=== PATIENT | male | born 1950 | race Caucasian/White ===

== ENCOUNTER 2017-06-28 11:47 | Inpatient (IN) ==
[2017-06-28 12:04] LABS: Basophils % 0.3 %; Eosinophils # 0.5 K/mcL (0.0-0.6); Eosinophils % 7.1 %; Hematocrit 39.2 % (37.5-50.1); Hemoglobin 13.3 g/dL (12.9-16.9); Immature Granulocytes % 0.3 % (0-4); Lymphocytes # 1.3 K/mcL (0.6-4.6); Lymphocytes % 20.2 %; Mean Corpuscular HGB Conc 33.9 g/dL (31.6-35.5); Mean Corpuscular Hemoglobin 29.8 pg (28.0-33.3); Mean Corpuscular Volume 87.9 fL (83.0-100.0); Monocytes # 0.8 K/mcL (0.0-1.3); Monocytes % 12.4 %; Neutrophils # 3.9 K/mcL (1.6-8.9); Platelet Count 174 K/mcL (140-400); Red Blood Count 4.46 M/mcL (4.19-5.50); Red Cell Distribution Width 13.2 % (11.5-14.5); Segmented Neutrophils % 59.7 %
[2017-06-28 12:09] LABS: Prothrombin Time 10.7 Seconds (9.4-12.1)
[2017-06-28 12:12] LABS: Activated Partial Thrombo Time 31.2 Seconds (26.0-36.0)
--- NOTE | 2017-06-28 12:16 | Emergency Department Note ---
Disposition Clinical Impression: Dysarthria Cerebrovascular accident Qualifiers: CVA mechanism: unspecified Qualified Code(s): I63.9 - Cerebral infarction, unspecified Disposition: Admitted As Inpatient Condition: Good Neuro HPI - General Chief Complaint: ED Neuro Symptoms/Deficit Stated Complaint: neuro sx 0800 LKW Time Seen by Provider: 06/28/17 11:55 Source: patient Mode of arrival: private vehicle Limitations: no limitations - History of Present Illness HPI Narrative: 67-year-old male history of hypertension, diabetes, hyperlipidemia who presents to the ER with a chief complaint of difficulty speaking and slurring words. Patient reports symptom onset at 8 AM this morning. Denies any injury or trauma. States he was trying to get dressed and noticed it took longer than usual and he was having trouble speaking. Significant other at bedside reports that he is slurring his words. No prior history of TIA or CVA in the past. He is not on any anticoagulation medications. He does take an aspirin daily. Upon arrival the patient is noted to have a right facial droop with dysarthria. Patient taken to CT for emergent imaging. Onset of Symptoms Date: 06/28/17 Onset of Symptoms Time: 08:00 Symptom Onset Unknown: No Location: speech, right face History of same: No Severity: mild Symptoms Improving: No Improves with: none Worsens with: none Context: sudden onset On Anticoagulants: No Associated symptoms: Reports: denies other symptoms Treatments Prior to Arrival: none - Related Data Home Medications: Home Medications Medication Instructions Recorded Confirmed Ascorbic Acid [Vitamin C] 1,000 mg PO DAILY 06/28/17 06/28/17 Aspirin 81 mg PO DAILY 06/28/17 06/28/17 Atorvastatin [Lipitor] 10 mg PO HS 06/28/17 06/28/17 Citalopram [CeleXA] 20 mg PO DAILY 06/28/17 06/28/17 Ferrous Sulfate [Iron] 325 mg PO BID 06/28/17 06/28/17 Folic Acid 1 mg PO DAILY 06/28/17 06/28/17 Glimepiride [Amaryl] 1 mg PO DAILY 06/28/17 06/28/17 Metoprolol [Lopressor] 25 mg PO BID 06/28/17 06/28/17 [place]-3 Fatty Acids [Fish Oil] 300 mg PO DAILY 06/28/17 06/28/17 metFORMIN [Glucophage] 1,000 mg PO BIDWM 06/28/17 06/28/17 Allergies/Adverse Reactions: Allergies Allergy/AdvReac Type Severity Reaction Status Date / Time No Known Allergies Allergy Verified 06/28/17 11:55 All systems ED: reviewed and negative except as stated. Constitutional: Denies: fever Cardiovascular: Denies: chest pain Respiratory: Denies: dyspnea Gastrointestinal: Denies: abdominal pain Neurological: Denies: headache, numbness, paresthesias Past Medical History - Past Medical History Attestation: Yes The following information was validated with the patient. Source: patient Medical history: Reports: CVA, diabetes, hypertension Psychiatric history: Reports: no psych history - Social History Smoking Status: Former smoker Smokeless Tobacco Status: No Alcohol use: Reports: none Drug use: Reports: none Physical Exam - General Limitations: no limitations General appearance: alert, in no apparent distress - Head Head exam: atraumatic, normocephalic - Eye Eye exam: Present: normal appearance - ENT ENT exam: normal exam - Neck Neck exam: Present: normal inspection, full ROM - Chest Chest inspection: Present: normal inspection, symmetric chest wall rise - Respiratory Respiratory exam: Present: normal lung sounds bilaterally - Cardiovascular Cardiovascular exam: Present: regular rate, normal rhythm, normal heart sounds - Abdominal Exam Abdominal exam: Present: soft, Non-Tender. Absent: tenderness - Extremities Exam Extremities exam: Present: normal inspection, full ROM - Expanded Upper Extremity Exam Shoulder exam: Present: normal inspection, full ROM Arm exam: Present: normal inspection, full ROM Elbow exam: Present: normal inspection, full ROM Forearm/Wrist exam: Present: normal inspection, full ROM Hand exam: Present: normal inspection, full ROM - Expanded Lower Extremity Exam Hip/Pelvis exam: Present: normal inspection, full ROM Upper leg exam: Present: normal inspection, full ROM Knee exam: Present: normal inspection, full ROM Lower leg exam: Present: normal inspection, full ROM Ankle exam: Present: normal inspection, full ROM Foot/toe exam: Present: normal inspection, full ROM Neurovascular/Tendon exam: Absent: motor deficit, sensory deficit - Neurological Exam Neurological exam: Present: alert - Expanded Neurological Exam Speech: Present: expressive aphasia Cranial nerves: EOM function (II, III, IV, ): Normal, facial palsy (VII): Abnormal Right, spinal accessory function (XI): Normal, tongue deviation (XII): Normal Cerebellar function: finger to nose: Normal, heel to collins: Normal Motor strength - LUE: 5/5 Motor strength - RUE: 5/5 Motor strength - LLE: 5/5 Motor strength - RLE: 5/5 Sensory exam upper extremity: light touch: Normal Sensory exam lower extremity: light touch: Normal Coma Scale Eye Opening: Spontaneous Coma Scale Motor Response: Obeys Commands Coma Scale Verbal Response: Oriented Coma Scale Total: 15 - Skin Skin exam: Present: warm, dry, intact Course Course Narrative: Patient seen and examined. I also spoke with the radiologist who reports they see an infarction in the left cerebral hemisphere that would correlate with the patient's symptoms. We will discussed with [facility] neurology for their recommendations as well as get labs here. - Reevaluation(s) Reevaluation #1: Patient evaluated by [facility] neurology. He did tell them that his symptom onset might of been more around 7:30. He is no longer in the window for TPA. They do agree with continuing workup with a CT of his head and neck and transfer something shown to be reversible. I discussed this with the patient and family. They would rather stay here if they are able to. Patient will go for CT of the head and neck. Reevaluation #2: Discussed results of CTA with the patient. He requests to stay here all possible. We will discuss with the hospitalist. Vital Signs Temperature 0 F L 06/28/17 11:49 Pulse Rate 0 06/28/17 11:49 Respiratory Rate 0 06/28/17 11:49 Blood Pressure 0/0 06/28/17 11:49 O2 Sat by Pulse Oximetry 0 06/28/17 11:49 Temperature 98.9 F 06/28/17 12:02 Pulse Rate 71 06/28/17 15:52 Respiratory Rate 20 06/28/17 15:52 Blood Pressure 187/84 06/28/17 15:52 O2 Sat by Pulse Oximetry 98 06/28/17 15:52 Oxygen Delivery Oxygen Delivery Room Air Neuro Symptoms/Deficit - MDM Narrative Medical decision making narrative: 67-year-old male presents to the ER due to dysarthria and aphasia. No prior history of CVA in the past. He was deemed a stroke alert candidate arrival. He had initial presenting NIH of 4. CT demonstrates an acute infarction of the left cerebral hemisphere. Patient was evaluated independently by [facility] neurology. He was found to be outside the window for TPA administration. He underwent emergent CT of the head and neck for evaluation of acute thrombus. He does have what appear to be stenotic areas of his internal carotid artery with reconstituted flow. He is admitted to the hospitalist service for neurologic evaluation. - Lab Data Lab results reviewed: Yes I reviewed the patient's lab results. Result diagrams: 06/28/17 11:57 06/28/17 11:57 Lab Results 06/28/17 06/28/17 06/28/17 Range/Units 11:52 11:57 11:57 WBC 6.5 (4.3-11.1) K/mcL RBC 4.46 (4.19-5.50) M/mcL Hgb 13.3 (12.9-16.9) g/dL Hct 39.2 (37.5-50.1) % MCV 87.9 (83.0-100.0) fL MCH 29.8 (28.0-33.3) pg MCHC 33.9 (31.6-35.5) g/dL RDW 13.2 (11.5-14.5) % Plt Count 174 (140-400) K/mcL MPV 10.0 (9.4-12.4) fL Immature Gran % 0.3 (0-4) % Seg Neutrophils % 59.7 % Lymphocytes % 20.2 % Monocytes % 12.4 % Eosinophils % 7.1 % Basophils % 0.3 % Neutrophils # 3.9 (1.6-8.9) K/mcL Lymphocytes # 1.3 (0.6-4.6) K/mcL Monocytes # 0.8 (0.0-1.3) K/mcL Eosinophils # 0.5 (0.0-0.6) K/mcL Basophils # 0.0 (0.0-0.2) K/mcL PT 10.7 (9.4-12.1) Seconds INR 1.0 APTT 31.2 (26.0-36.0) Seconds Sodium (136-145) mEq/L Potassium (3.5-5.1) mEq/L Chloride (98-107) mEq/L Carbon Dioxide (23-29) mEq/L BUN (8-23) mg/dL Creatinine (0.70-1.30) mg/dL Est GFR ( Amer) (> 60) Est GFR (Non-Af Amer) (> 60) BUN/Creatinine Ratio (6-26) Glucose (70-105) mg/dL POC Glucose 118 H (58-89) Calculated Osmolality (280-300) Calcium (8.6-10.3) mg/dL Troponin I (< 0.04) ng/mL 06/28/17 06/28/17 Range/Units 11:57 11:57 WBC (4.3-11.1) K/mcL RBC (4.19-5.50) M/mcL Hgb (12.9-16.9) g/dL Hct (37.5-50.1) % MCV (83.0-100.0) fL MCH (28.0-33.3) pg MCHC (31.6-35.5) g/dL RDW (11.5-14.5) % Plt Count (140-400) K/mcL MPV (9.4-12.4) fL Immature Gran % (0-4) % Seg Neutrophils % % Lymphocytes % % Monocytes % % Eosinophils % % Basophils % % Neutrophils # (1.6-8.9) K/mcL Lymphocytes # (0.6-4.6) K/mcL Monocytes # (0.0-1.3) K/mcL Eosinophils # (0.0-0.6) K/mcL Basophils # (0.0-0.2) K/mcL PT (9.4-12.1) Seconds INR APTT (26.0-36.0) Seconds Sodium 136 (136-145) mEq/L Potassium 4.3 (3.5-5.1) mEq/L Chloride 105 (98-107) mEq/L Carbon Dioxide 23 (23-29) mEq/L BUN 19 (8-23) mg/dL Creatinine 0.98 (0.70-1.30) mg/dL Est GFR ( Amer) > 60 (> 60) Est GFR (Non-Af Amer) > 60 (> 60) BUN/Creatinine Ratio 19 (6-26) Glucose 119 H (70-105) mg/dL POC Glucose (58-89) Calculated Osmolality 285 (280-300) Calcium 8.9 (8.6-10.3) mg/dL Troponin I < 0.03 (< 0.04) ng/mL - Radiology Data Radiology results reviewed: Yes I reviewed the patient's radiology results. Head CT 06/28/17 11:56 IMPRESSION: 7 mm acute infarction in the posterior aspect of the left frontal lobe, in the left MCA territory. Sinus mucosal disease. The results were called by Dr. Liban Salinas MD to Dr. Schuler on 06/28/2017 at 12:13. D/ / Liban Salinas MD / Liban Salinas MD Interpreting Provider: Libna Salinas MD Head CTA 06/28/17 12:34 IMPRESSION: 1. 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 There is reconstitution of the left internal carotid artery along the petrous segment. 2. There is a 35% stenosis in the proximal right internal carotid artery. 3. There is a greater than 50% stenosis at the right vertebral artery origin which is nondominant. 4. There are estimated 50% stenoses in the left internal carotid artery along the cavernous and supraclinoid segments. Mild areas of narrowing are noted in the right cavernous and supraclinoid ICA. 5. No evidence of an aneurysm. D/ /28/2017 14:04:30 Aryan Bella MD / ashley Interpreting Provider: Aryan Bella MD Neck CTA 06/28/17 12:34 IMPRESSION: 1. 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 There is reconstitution of the left internal carotid artery along the petrous segment. 2. There is a 35% stenosis in the proximal right internal carotid artery. 3. There is a greater than 50% stenosis at the right vertebral artery origin which is nondominant. 4. There are estimated 50% stenoses in the left internal carotid artery along the cavernous and supraclinoid segments. Mild areas of narrowing are noted in the right cavernous and supraclinoid ICA. 5. No evidence of an aneurysm. D/ 06/28/2017 14:04:30 Aryan Bella MD / ashley Interpreting Provider: Aryan Bella MD - EKG Data EKG attestation: Yes I reviewed and interpreted this EKG. NIH Stroke Scale - Level of Consciousness LOC: Alert - LOC Questions LOC Questions: Answers both correctly - LOC Commands LOC Commands: Performs both correctly - Best Gaze Best Gaze: Normal - Visual Visual: No visual loss - Facial Palsy Facial Palsy: Partial, total, or near-total paralysis of lower face - Motor Arms Motor Arm-Left: No drift for 10 seconds Motor Arm-Right: No drift for 10 seconds - Motor Legs Motor Leg-Left: No drift for 5 seconds Motor Leg-Right: No drift for 5 seconds - Limb Ataxia Limb Ataxia: Absent of affected limb too weak to perform exam - Sensory Sensory: Normal - Best Language Best Language: Mild to moderate aphasia. Examiner can identify picture from response - Dysarthria Dysarthria: Mild, slurs some words - Extinction and Inattention Extinction and Inattention: Normal - NIHSS Total Score NIHSS Total Score: 4 S.B.A.R. - S.B.A.R. Situation: Demographics, MOA Background: Presenting Complaint, Relevant PMH, Meds, & Allergies Assessment: Course and respsone to treatment, Exam Concerns, Patient/Family Expectation, Pertinant Lab Results Recommendation: Barrier(s) to disposition, Recommendation based on pending studies, treatments, or consults S.B.A.RRey Report Given to: Dr. Ying Daigle [facility] Time: 15:21 Attestation Statement - Attestation Attestation: I examined this patient and my medical decision-making was reviewed with the Resident Physician. I agree with the documented findings, disposition and treatment plan as described except to the extent set forth below. 67-year-old male presents to the ED because of right-sided facial weakness. Symptoms began this morning around 8 AM along with brief episode of diaphoresis. He had no weakness of the extremities or any other complaints. No pain. No recent trauma. 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 No other focal complaints. His noticed that his speech was also slurred and he was having trouble producing words. Generally well-appearing male in no apparent physiologic distress. Membranes are moist. Neck is supple trachea midline. Tongue and uvula are midline. Pupils equal reactive light. There is no weakness to the right side of his face. Neck is supple without adenopathy. Cardiac exam is regular without ectopy. Abdomen soft, nondistended and nontender. Lungs clear to auscultation bilaterally. Neurologic exam he has weakness of the right side of his face with mild dysarthria and some mild word searching. Strength is normal in both upper and lower extremities. No sensory deficits are detected. NIH score is 4- 5. CT head was performed immediately upon arrival revealing a small area of infarction on the posterior aspect of the left frontal lobe. He was evaluated emergently by stroke neurologist [facility] via telemetry. At that point because his NIH score was more of a 2 or 3 and he was outside the window of any therapy measures with thrombolytics. He was sent for CTA which revealed a cyst significant stenosis of the proximal left internal carotid artery which was likely contributing to his presentation. He continued with mild dysarthria and was given rectal aspirin and admitted to the hospital for further workup and treatment. The high probability of a clinically significant, sudden or life threatening deterioration of the [cerebrovascular] system(s) required my full and direct attention, intervention and personal management. The aggregate critical care time was [35] minutes. This time is in addition to time spent performing reported procedures but includes the following: [x] Data Review and interpretation [x] Patient assessment and monitoring of vital signs [x] Documentation [x] Medication orders and management
[2017-06-28 12:25] LABS: BUN/Creatinine Ratio 19 (6-26); Blood Urea Nitrogen 19 mg/dL (8-23); Calcium 8.9 mg/dL (8.6-10.3); Carbon Dioxide 23 mEq/L (23-29); Chloride 105 mEq/L (98-107); Glucose 119 mg/dL (70-105); Osmolality,Calculated 285 (280-300); Potassium 4.3 mEq/L (3.5-5.1); Sodium 136 mEq/L (136-145); eGFR For African Americans > 60 (> 60); eGFR For Non-African Americans > 60 (> 60)
[2017-06-28] MEDS ORDERED: Alteplase (Activase) 100 MG in EMPTY BAG 1 EACH IVPB ONE (12:25)
[2017-06-28] MEDS ORDERED: Aspirin 325 MG TABLET PO ONE (14:11)
[2017-06-28] MEDS ORDERED: Acetaminophen 325 MG TABLET PO PRN (17:35)
[2017-06-28] MEDS ORDERED: *HR* HYDROcodone/Acet 5/325 mg TABLET PO PRN (17:35)
[2017-06-28] MEDS ORDERED: Ondansetron 4 MG/2 ML VIAL IVP PRN (17:35)
[2017-06-28] MEDS ORDERED: Naloxone 0.4 MG/ML INJ IVP PRN (17:35)
[2017-06-28] MEDS ORDERED: *HR* Morphine 2 MG/ML SYRINGE IVP PRN (17:35)
[2017-06-28] MEDS ORDERED: D5% in Water 1,000 ML IVC PRN (17:38)
[2017-06-28] MEDS ORDERED: Dextrose Gel 15 GM/37.5 ML TUBE PO PRN ×2 (17:38)
[2017-06-28] MEDS ORDERED: *HR* Dextrose 50 % in Water (Syg) 50 ML SYRINGE IVP PRN (17:38)
--- NOTE | 2017-06-28 18:11 | Internal Med History&Physical ---
Date of Encounter: 06/28/17 Time of Encounter: 18:07 Assessment and Plan (1) Acute CVA (cerebrovascular accident) Current visit: Yes Status: Acute Admit the pt into Tele Reviewed CT of Head, CTA of Head Showed Left frontal lobe acute 7mm infraction He is already on ASA at home.. will add Plavix to ASA for DAP therapy Statin Lipitor 80mg HS FLP in AM Out of the window for tPA Goal for BP 140-160/90 Resumed home PO meds for BP Neuro consulted MRI of Brain in AM 2 D Echo in AM Stat EKG on Tele frequent neurochecks PT / OT eval talked to the pt and family at bed side and explained to them about current care (2) Dysarthria Current visit: Yes Status: Acute (3) HTN (hypertension) Current visit: Yes Status: Acute goal 140-160/90 resumed PO meds Qualifiers: Hypertension type: essential hypertension Qualified Code(s): I10 - Essential (primary) hypertension (4) HLD (hyperlipidemia) Current visit: Yes Status: Acute Lipitor 80mg Qualifiers: Hyperlipidemia type: unspecified Qualified Code(s): E78.5 - Hyperlipidemia , unspecified (5) DM2 (diabetes mellitus, type 2) Current visit: Yes Status: Acute check HbA1C ISS at low Qualifiers: Qualified Code(s): E11.9 - Type 2 diabetes mellitus without complications Internal Medicine - H&P: HPI Chief complaint: Slurred speech and Rt facial numbness Admitted From: Emergency Dept Plans for Post Hospital Care: Home History of present illness: Mr. 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 As per pt his symptoms started this morning around 7 to 8 AM, but he did not come to ER until 11.00 AM. He had further work up done in the ER , CT of Head showed 7mm acute infraction in the posterior aspect of Left frontal lobe in the Lt MCA territory. CTA of Head showed Left internal carotid occluded at its origin. Now pt is alert, awake and O x3, stated he is feeling little better, speech improved little bit. He is able to swallow ok now. He denied any weakness in any of his extremities. Past Med Surg Social Fam HX - Past Medical History Medical history: CVA, diabetes, hypertension Psychiatric history: no psych history - Social History Smoking Status: Former smoker Smokeless Tobacco Status: No Alcohol use: none Drug use: none - Family History Brother Hx Family Cardiac Disorders: Yes Sister Hx Family Cardiac Disorders: Yes Internal Medicine - H&P: Meds Ascorbic Acid [Vitamin C] 1,000 mg PO DAILY 06/28/17 [History] Aspirin 81 mg PO DAILY 06/28/17 [History] Atorvastatin [Lipitor] 10 mg PO HS 06/28/17 [History] Citalopram [CeleXA] 20 mg PO DAILY 06/28/17 [History] Ferrous Sulfate [Iron] 325 mg PO BID 06/28/17 [History] Folic Acid 1 mg PO DAILY 06/28/17 [History] Glimepiride [Amaryl] 1 mg PO DAILY 06/28/17 [History] Metoprolol [Lopressor] 25 mg PO BID 06/28/17 [History] [place]-3 Fatty Acids [Fish Oil] 300 mg PO DAILY 06/28/17 [History] metFORMIN [Glucophage] 1,000 mg PO BIDWM 06/28/17 [History] 3 Allergy/AdvReac Type Severity Reaction Status Date / Time No Known Allergies Allergy Verified 06/28/17 11:55 All Systems PM: A 10-system review of systems was performed and is negative for pertinent findings except as documented above in the HPI. Review of systems: Reviewed all the systems, everything is benign except the systems and symptoms I mentioned in HPI - Constitutional Vitals: Temp Pulse Resp BP Pulse Ox 98.0 F 66 16 191/89 98 06/28/17 17:21 06/28/17 16:58 06/28/17 16:58 06/28/17 16:58 06/28/17 15:52 General appearance: Present: A&O X 3, no acute distress, answers questions appropriately - Head Head exam: Present: atraumatic, normal inspection - Neck Neck exam general surgery: Present: supple - Respiratory Respiratory exam: Present: decreased breath sounds. Absent: rales, respiratory distress, rhonchi, wheezes - Cardiovascular Cardiovascular exam: Present: RRR, +S1, +S2. Absent: systolic murmur, tachycardia - GI/Abdominal GI/Abdominal exam: Present: normal bowel sounds, soft. Absent: rebound, rigid, tenderness - Extremities Exam Extremities exam: Absent: calf tenderness, pedal edema, tenderness - Back Exam Back exam: Absent: CVA tenderness (L), CVA tenderness (R) - Neurological Exam Neurological exam: Present: alert, CN II-XII intact (Except Rt facial droop), oriented X3, strengths equal and symetr throughout, speech deficit. Absent: pronater drift, facial droop - Psychiatric Psychiatric exam: Present: normal affect, normal mood - Skin Skin exam: Absent: rash Internal Med - H&P Results - Labs CBC & Chem 7: 06/28/17 11:57 06/28/17 11:57
[2017-06-28] MEDS: Insulin LISPRO 300 UNITS/3 ML VIAL SQ SCH (21:11)
[2017-06-29 05:10] LABS: Basophils % 0.2 %; Eosinophils # 0.4 K/mcL (0.0-0.6); Hematocrit 36.8 % (37.5-50.1); Hemoglobin 12.4 g/dL (12.9-16.9); Immature Granulocytes % 0.4 % (0-4); Lymphocytes % 20.6 %; Mean Corpuscular HGB Conc 33.7 g/dL (31.6-35.5); Mean Corpuscular Hemoglobin 29.7 pg (28.0-33.3); Mean Platelet Volume 9.9 fL (9.4-12.4); Monocytes # 0.5 K/mcL (0.0-1.3); Monocytes % 9.8 %; Platelet Count 145 K/mcL (140-400); Red Blood Count 4.18 M/mcL (4.19-5.50); Red Cell Distribution Width 13.2 % (11.5-14.5)
[2017-06-29 05:33] LABS: BUN/Creatinine Ratio 18 (6-26); Blood Urea Nitrogen 17 mg/dL (8-23); Calcium 8.5 mg/dL (8.6-10.3); Carbon Dioxide 28 mEq/L (23-29); Chloride 102 mEq/L (98-107); Cholesterol 104 mg/dL (< 200); Glucose 164 mg/dL (70-105); HDL Cholesterol 26 mg/dL (40-59); Hemoglobin A1C 6.7 %; LDL Cholesterol,Calculated 49 mg/dL (0-99); Magnesium 1.9 mg/dL (1.6-2.6); Osmolality,Calculated 285 (280-300); Potassium 4.4 mEq/L (3.5-5.1); Sodium 135 mEq/L (136-145); Triglycerides 146 mg/dL (< 150); eGFR For African Americans > 60 (> 60); eGFR For Non-African Americans > 60 (> 60)
[2017-06-29] MEDS: Ipratropium/Albuterol Neb 3 ML IH PRN ×3 (06:02→12:19)
[2017-06-29 07:51] LABS: Adenovirus Not Detected (Not Detect)
[2017-06-29 07:52] LABS: Bordetella Pertussis Not Detected (Not Detect); Chlamydophila pneumoniae Not Detected (Not Detect); Coronavirus 229E Not Detected (Not Detect); Coronavirus HKU1 Not Detected (Not Detect); Coronavirus NL63 Not Detected (Not Detect); Coronavirus OC43 Not Detected (Not Detect); Human Metapneumovirus Not Detected (Not Detect); Human Rhinovirus/Enterovirus Not Detected (Not Detect); Influenza A Subtype 2009 H1 Not Detected (Not Detect); Influenza A Untypeable Not Detected (Not Detect); Influenza B Not Detected (Not Detect); Mycoplasma pneumoniae Not Detected (Not Detect); Parainfluenza Virus 1 Not Detected (Not Detect); Parainfluenza Virus 2 Not Detected (Not Detect); Parainfluenza Virus 3 Not Detected (Not Detect); Parainfluenza Virus 4 Not Detected (Not Detect); Respiratory Syncytial Virus Not Detected (Not Detect)
[2017-06-29] MEDS: Ascorbic Acid 500 MG TABLET PO SCH (09:42)
[2017-06-29] MEDS: Aspirin 81 MG TAB.CHEW PO SCH (09:42)
[2017-06-29] MEDS: Folic Acid 1 MG TABLET PO SCH (09:42)
[2017-06-29] MEDS: Insulin LISPRO 300 UNITS/3 ML VIAL SQ SCH ×4 (09:43→21:26)
--- NOTE | 2017-06-29 11:07 | Neurology - Consult Note ---
Date of Encounter: 06/29/17 Time of Encounter: 11:04 Assessment and Plan (1) Acute CVA (cerebrovascular accident) Current Visit: Yes Status: Acute 67 year old man with HTN, DM, obesity, hyperlipidemia previously on Aspirin who developed acute onset of slurred speech and right facial droop. CT of head showed left BG lacunar infarct but it already showed very clearly on the CT of head therefore not sure this is a new or chronic finding. I would feel that his symptoms are likely more the result of left ICA occlusion than the lacunar infarct. MRI of brain would be able to clarify if the lacunar infarct is new or chronic. Agree with Aspirin and Plavix for CVA prevention. Agree with statin therapy. Await echocardiogram. PT and speech therapy. In terms of left ICA occlusion, probably not surgical candidate but would be reasonable to give vascular surgery a call to see if any suggestions from their perspective. Thank you very much for the consultation. History of Present Illness Chief complaint: slurred speech and left facial droop HPI: Mr. Dumont is a 67 year old male with PMH significant for HTN, DM, hyperlipidemia and obesity who developed acute onset of slurred speech, facial droop and loss of dexterity to his right side. Symptoms started yesterday morning. noticed that he had trouble with words and he had trouble dressing himself. Initial CT of head showed 7mm lacunar infarct at the left posterior frontal region. He was out of window for tPA when he was seen at around noon and symptoms started at about 7:30am. Patient states that his symptoms are improving. slight speech difficulty still present but he is able to repeat no difficulty. 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 MRI of brain is pending Past Med Surg Social Fam HX - Past Medical History Medical history: CVA, diabetes, hypertension Psychiatric history: no psych history - Social History Smoking Status: Former smoker Smokeless Tobacco Status: No Alcohol use: none Drug use: none - Family History Brother Hx Family Cardiac Disorders: Yes Sister Hx Family Cardiac Disorders: Yes Medications and Allergies Ascorbic Acid [Vitamin C] 1,000 mg PO DAILY 06/28/17 [History] Aspirin 81 mg PO DAILY 06/28/17 [History] Atorvastatin [Lipitor] 10 mg PO HS 06/28/17 [History] Citalopram [CeleXA] 20 mg PO DAILY 06/28/17 [History] Ferrous Sulfate [Iron] 325 mg PO BID 06/28/17 [History] Folic Acid 1 mg PO DAILY 06/28/17 [History] Glimepiride [Amaryl] 1 mg PO DAILY 06/28/17 [History] Metoprolol [Lopressor] 25 mg PO BID 06/28/17 [History] [place]-3 Fatty Acids [Fish Oil] 300 mg PO DAILY 06/28/17 [History] metFORMIN [Glucophage] 1,000 mg PO BIDWM 06/28/17 [History] 3 Allergy/AdvReac Type Severity Reaction Status Date / Time No Known Allergies Allergy Verified 06/28/17 11:55 All Systems: A 10-system review of systems was performed and is negative for pertinent findings except as documented above in the HPI. Physical Examination - Vital Signs Vital Signs: Initial Vital Signs Temp Pulse Resp BP Pulse Ox 0 F L 0 0 0/0 0 06/28/17 11:49 06/28/17 11:49 06/28/17 11:49 06/28/17 11:49 06/28/17 11:49 - Neurologic Detailed motor examination: full strength in all major muscle groups Motor examination - right side: 5/5: deltoids, biceps, triceps, wrist flexion, wrist extension, polish compounder, hip flexors, tibialis Anterior, quadriceps, toe extension (EHL), plantarflexion Motor examination - left side: 5/5: deltoids, biceps, triceps, wrist flexion, wrist extension, hip flexors, polish compounder, quadriceps, tibialis Anterior, toe extension (EHL), plantarflexion Detailed sensory examination: intact Reflex and gait examination: intact Reflexes: Biceps: 1+, Triceps: 1+, Brachioradialis: 1+, Patella: 1+, Achilles: 1 + Mental Status Examination: awake, alert, oriented to person, oriented to place, oriented to time, follows commands appropriately, answers questions appropriately, no agnosia, no aphasia (Very slight dysphasia noted. However, the patient still has very mild dysphasia), no aproxia Cranial nerve examination: PERRL, EOMI, visual olndono intact, corneal reflexes brisk symmetrically, sensory to face intact, mastication intact, no facial asymmetry is present (right facial flattening noted), no dysarthria, hearing is intact symmetrically, soft palate elevates bilaterally upon phonation, gag reflex intact, flexes SCM and trapezius muscles symmetrically with full power, tongue protrudes midline, no atrophy or facial fasiculations present Cerebellar examination: no dysmetria, performs finger to nose and heel to collins symmetrically without ataxia, no gait ataxia, no truncal ataxia, no difficulty with rapid alternating movements Results - Laboratory Findings CBC and BMP: 06/29/17 04:54 06/29/17 04:54 Abnormal lab findings: Abnormal lab results RBC 4.18 M/mcL (4.19-5.50) L 06/29/17 04:54 Hgb 12.4 g/dL (12.9-16.9) L 06/29/17 04:54 Hct 36.8 % (37.5-50.1) L 06/29/17 04:54 Sodium 135 mEq/L (136-145) L 06/29/17 04:54 Glucose 164 mg/dL (70-105) H 06/29/17 04:54 POC Glucose 205 (58-89) H 06/28/17 19:24 Hemoglobin A1c 6.7 % (-5.6) H 06/29/17 04:54 Calcium 8.5 mg/dL (8.6-10.3) L 06/29/17 04:54 HDL Cholesterol 26 mg/dL (40-59) L 06/29/17 04:54 Influenza A (H3) PCR DETECTED (Not Detect) A 06/29/17 05:37 Consult Discharge Plan - Plan Referrals: Inés Florian CNP [Primary Care Provider] - Socorro Cordero CNP [Family Provider] -
--- NOTE | 2017-06-29 15:13 | Internal Med Progress Note ---
Date of Encounter: 06/29/17 Time of Encounter: 12:00 - Assessment and plan (1) Acute CVA (cerebrovascular accident) Current Visit: Yes Status: Acute Assessment and plan: MRI of Head showed 4 acute infarcts with in the Left frontal lobe - MCA territory, largest one measures at 13mm size located at precentral gyrus Neuro on board mostly due to Left ICA occlusion cont ASA + Plavix for now cont statin Vascular surgery not in house till Saturday will talk to them on Saturday PT / OT eval Tolerating PO intake well may get benefit with swing bed placement BP goal to 130-140/90 waiting on 2 D Echo (2) ICAO (internal carotid artery occlusion) Current Visit: Yes Status: Acute Assessment and plan: will talk to Vascular surgery on Saturday cont ASA + Plavix for now Qualifiers: Laterality: left Qualified Code(s): I65.22 - Occlusion and stenosis of left carotid artery (3) Dysarthria Current Visit: Yes Status: Acute (4) HTN (hypertension) Current Visit: Yes Status: Acute Assessment and plan: fairly controlled Cont Metoprolol 25mg BID Added Lisinopril 20mg Daily Qualifiers: Hypertension type: essential hypertension Qualified Code(s): I10 - Essential (primary) hypertension (5) HLD (hyperlipidemia) Current Visit: Yes Status: Acute Assessment and plan: reviewed FLP.. 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 As per pt his symptoms started this morning around 7 to 8 AM, but he did not come to ER until 11.00 AM. He had further work up done in the ER , CT of Head showed 7mm acute infraction in the posterior aspect of Left frontal lobe in the Lt MCA territory. CTA of Head showed Left internal carotid occluded at its origin. He is more alert, awake and O x 3 today. Denied any CP / SOB. Speech also little better, however still has some slurred speech. - Constitutional Vitals: Temp Pulse Resp BP Pulse Ox 98.1 F 70 16 169/89 96 06/29/17 11:08 06/29/17 11:08 06/29/17 12:19 06/29/17 11:08 06/29/17 12:19 General appearance: Present: A&O X 3, no acute distress, answers questions appropriately - Head Head exam: Present: atraumatic, normal inspection - Neck Neck exam general surgery: Present: supple - Respiratory Respiratory exam: Present: decreased breath sounds. Absent: rales, respiratory distress, rhonchi, wheezes - Cardiovascular Cardiovascular exam: Present: RRR, +S1, +S2. Absent: tachycardia - GI/Abdominal GI/Abdominal exam: Present: normal bowel sounds, soft. Absent: rebound, rigid, tenderness - Extremities Exam Extremities exam: Absent: calf tenderness, pedal edema, tenderness - Neurological Exam Neurological exam: Present: alert, CN II-XII intact (Except Rt facial droop), oriented X3, facial droop, speech deficit. Absent: pronater drift - Psychiatric Psychiatric exam: Present: normal affect, normal mood Internal Medicine: Result - Labs CBC & Chem 7: 06/29/17 04:54 06/29/17 04:54 Labs: Short CBC 06/29/17 Range/Units 04:54 WBC 4.9 (4.3-11.1) K/mcL Hgb 12.4 L (12.9-16.9) g/dL Hct 36.8 L (37.5-50.1) % Plt Count 145 (140-400) K/mcL Neutrophils # 3.0 (1.6-8.9) K/mcL BMP 06/29/17 04:54 Sodium 135 L Potassium 4.4 Chloride 102 Carbon Dioxide 28 BUN 17 Creatinine 0.95 Glucose 164 H Calcium 8.5 L - ABG Interpretation ABG results: PT/INR, D-dimer PT 10.7 Seconds (9.4-12.1) 06/28/17 11:57 - Impressions Impressions Brain MRI 06/29/17 09:00 IMPRESSION: Four acute infarcts within the left frontal lobe within the MCA territory, the largest of which measures 13 mm and is located within the left precentral gyrus. No acute intracranial hemorrhage. D/ / 06/29/2017 13:34:11 Gerardo Kelly MD / caleb Interpreting Provider: Gerardo Kelly MD Consult Discharge Plan - Plan Referrals: Inés Florian CNP [Primary Care Provider] - Socorro Cordero CNP [Family Provider] -
[2017-06-29] MEDS: Lisinopril 20 MG TABLET PO SCH (17:34)
[2017-06-30] MEDS: Ascorbic Acid 500 MG TABLET PO SCH (09:09)
[2017-06-30] MEDS: Aspirin 81 MG TAB.CHEW PO SCH (09:09)
[2017-06-30] MEDS: Folic Acid 1 MG TABLET PO SCH (09:10)
[2017-06-30] MEDS: Insulin LISPRO 300 UNITS/3 ML VIAL SQ SCH ×4 (09:10→20:30)
[2017-06-30] MEDS: Lisinopril 20 MG TABLET PO SCH (09:10)
[2017-06-30] MEDS: amLODIPine 5 MG TABLET PO SCH (11:54)
--- NOTE | 2017-06-30 13:12 | Neurology Progress Note ---
Date of Encounter: 06/30/17 Time of Encounter: 13:09 Assessment and Plan (1) Acute CVA (cerebrovascular accident) Current Visit: Yes Status: Acute Four acute cerebral infarct involving the left MCA territory, secondary to left ICA total occlusion. Symptoms have improved and only residual mild dysphasia noted. Continue Aspirin 81mg and plavix dual antiplatelet therapy. Continue statin therapy. Patient needs sleep study to assess probable untreated SHANIKA. This can be done as an outpatient. Subjective Principal diagnosis: CVA, total left ICA occlusion Interval history: Patient seen and examined. He is feeling better. speech is still slightly slurred but no visible focal weakness seen. MRI of brain completed and showed four acute infarcts within the left frontal lobe with the MCA territory. This would be consistent with the finding of left ICA total occlusion. Echocardiogram also completed and showed: LVEF 55%. Mild left ventricular diastolic dysfunction. No evidence of PFO with agitated saline contrast. Small .8cm x .8cm non mobile mass on the aortic surface of the right coronary cusp leaflet tip. Unlikely vegetation possible PFE, ROMMEL superior imaging modality recommended Patient is waiting for ROMMEL. Patient has loud snoring per his . He is obesity and has large neck and multiple risk factors for cardiovascular morbidity. Suspect untreated obstructive sleep apnea Objective - Constitutional Vitals: Temp Pulse Resp BP Pulse Ox 98.1 F 74 12 166/82 95 06/30/17 10:59 06/30/17 10:59 06/30/17 10:59 06/30/17 10:59 06/30/17 10:59 - Neurological Exam Motor Examination: Present: full strength in all major muscle groups Motor examination - left side: 5/5: deltoids, biceps, triceps, wrist flexion, wrist extension, hip flexors, geriatric physical therapist, quadriceps, tibialis Anterior, toe extension (EHL), plantarflexion Sensation intact: Present: intact Reflex and gait examination: intact Mental Status Examination: Present: awake, alert, oriented to person, oriented to place, oriented to time, follows commands appropriately, answers questions appropriately, no agnosia, no aphasia (Very slight dysphasia noted. However, the patient still has very mild dysphasia), no aproxia Cranial nerve examination: Present: PERRL, EOMI, visual londono intact, corneal reflexes brisk symmetrically, sensory to face intact, mastication intact, no facial asymmetry is present (right facial flattening noted), no dysarthria, hearing is intact symmetrically, soft palate elevates bilaterally upon phonation , gag reflex intact, flexes SCM and trapezius muscles symmetrically with full power, tongue protrudes midline, no atrophy or facial fasiculations present Cerebellar examination: Present: no dysmetria, performs finger to nose and heel to collins symmetrically without ataxia, no gait ataxia, no truncal ataxia, no difficulty with rapid alternating movements Results - Laboratory Findings CBC and BMP: 06/29/17 04:54 06/29/17 04:54 Abnormal lab findings: Abnormal lab results RBC 4.18 M/mcL (4.19-5.50) L 06/29/17 04:54 Hgb 12.4 g/dL (12.9-16.9) L 06/29/17 04:54 Hct 36.8 % (37.5-50.1) L 06/29/17 04:54 Sodium 135 mEq/L (136-145) L 06/29/17 04:54 Glucose 164 mg/dL (70-105) H 06/29/17 04:54 POC Glucose 191 (58-89) H 06/30/17 11:02 Hemoglobin A1c 6.7 % (-5.6) H 06/29/17 04:54 Calcium 8.5 mg/dL (8.6-10.3) L 06/29/17 04:54 HDL Cholesterol 26 mg/dL (40-59) L 06/29/17 04:54 Influenza A (H3) PCR DETECTED (Not Detect) A 06/29/17 05:37 - Diagnostic Findings Additional findings: EV/EV echocardiogram Impressions: LVEF 55%. Mild left ventricular diastolic dysfunction. No evidence of PFO with agitated saline contrast. Small .8cm x .8cm non mobile mass on the aortic surface of the right coronary cusp leaflet tip. Unlikely vegetation possible PFE, ROMMEL superior imaging modality recommended MR/MR head/brain wo con IMPRESSION: Four acute infarcts within the left frontal lobe within the MCA territory, the largest of which measures 13 mm and is located within the left precentral gyrus. No acute intracranial hemorrhage. Consult Discharge Plan - Plan Referrals: Inés Florian CNP [Primary Care Provider] - Socorro Cordero CNP [Family Provider] -
--- NOTE | 2017-06-30 15:03 | Internal Med Progress Note ---
Date of Encounter: 06/30/17 Time of Encounter: 11:15 - Assessment and plan (1) Acute CVA (cerebrovascular accident) Current Visit: Yes Status: Acute Assessment and plan: MRI of Head showed 4 acute infarcts with in the Left frontal lobe - MCA territory, largest one measures at 13mm size located at precentral gyrus mostly due to Left ICA occlusion Neuro on board cont ASA + Plavix for now cont statin Vascular surgery not in house till Saturday will talk to them on Saturday PT / OT eval Tolerating PO intake well may get benefit with swing bed placement BP goal to 130-140/90 2 D Echo showed Preserved LVEF 55%, small 0.8cm non mobile mass on the aortic surface of the Rt coronary cusp leaflet tip Spoke to Card..suggested ROMMEL for better eval..so scheduled for ROMMEL in AM (2) ICAO (internal carotid artery occlusion) Current Visit: Yes Status: Acute Assessment and plan: will talk to Vascular surgery on Saturday cont ASA + Plavix for now Qualifiers: Laterality: left Qualified Code(s): I65.22 - Occlusion and stenosis of left carotid artery (3) Dysarthria Current Visit: Yes Status: Acute (4) HTN (hypertension) Current Visit: Yes Status: Acute Assessment and plan: fairly controlled Cont Metoprolol 25mg BID and Lisinopril 20mg Daily will add low dose Norvasc 5mg today Qualifiers: Hypertension type: essential hypertension Qualified Code(s): I10 - Essential (primary) hypertension (5) HLD (hyperlipidemia) Current Visit: Yes Status: Acute Assessment and plan: reviewed FLP.. Benign numbers however will continue Lipitor at 80mg Qualifiers: Hyperlipidemia type: unspecified Qualified Code(s): E78.5 - Hyperlipidemia , unspecified (6) DM2 (diabetes mellitus, type 2) Current Visit: Yes Status: Acute Assessment and plan: well controlled cont ISS for now resumed PO meds when he get d/c home Qualifiers: Qualified Code(s): E11.9 - Type 2 diabetes mellitus without complications (7) Influenza A virus present Current Visit: Yes Status: Acute Assessment and plan: since pt has URI symptoms before he presented to hospital will start him on full course of Tamiflu - Subjective Interval history: 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 As per pt his symptoms started this morning around 7 to 8 AM, but he did not come to ER until 11.00 AM. He had further work up done in the ER , CT of Head showed 7mm acute infraction in the posterior aspect of Left frontal lobe in the Lt MCA territory. CTA of Head showed Left internal carotid occluded at its origin. He is more alert, awake and O x 3 today. Denied any CP / SOB. Speech also little better, however still has some slurred speech. No events over night - Constitutional Vitals: Temp Pulse Resp BP Pulse Ox 98.0 F 78 14 167/73 95 06/30/17 14:44 06/30/17 14:44 06/30/17 14:44 06/30/17 14:44 06/30/17 14:44 General appearance: Present: A&O X 3, no acute distress, answers questions appropriately - Head Head exam: Present: atraumatic, normal inspection - Neck Neck exam general surgery: Present: supple - Respiratory Respiratory exam: Present: decreased breath sounds. Absent: rales, respiratory distress, rhonchi, wheezes - Cardiovascular Cardiovascular exam: Present: RRR, +S1, +S2. Absent: tachycardia - GI/Abdominal GI/Abdominal exam: Present: normal bowel sounds, soft. Absent: rebound, rigid, tenderness - Extremities Exam Extremities exam: Absent: calf tenderness, pedal edema, tenderness - Back Exam Back exam: Absent: CVA tenderness (L), CVA tenderness (R) - Neurological Exam Neurological exam: Present: alert, oriented X3 - Psychiatric Psychiatric exam: Present: normal affect, normal mood - Skin Skin exam: Absent: rash Internal Medicine: Result - Labs CBC & Chem 7: 06/29/17 04:54 06/29/17 04:54 - ABG Interpretation ABG results: PT/INR, D-dimer PT 10.7 Seconds (9.4-12.1) 06/28/17 11:57 - Impressions Impressions Chest X-Ray 06/29/17 08:00 IMPRESSION: 1. Minimal peribronchial cuffing potentially due to bronchitis or reactive airways disease. 2. Pulmonary vascular congestion and/or chronic interstitial change. 3. Pulmonary hyperinflation, a finding can be seen with emphysema, asthma, or other etiologies. D/ / Marco Harrison MD / Marco Harrison MD Interpreting Provider: Marco Harrison MD Echocardiogram 06/29/17 18:14 Impressions: LVEF 55%. Mild left ventricular diastolic dysfunction. No evidence of PFO with agitated saline contrast. Small .8cm x .8cm non mobile mass on the aortic surface of the right coronary cusp leaflet tip. Unlikely vegetation possible PFE, ROMMEL superior imaging modality recommended Left Ventricular Wall Motion: Rest Echo Findings All wall segments showed normal motion. Findings: Study Quality * Technically adequate exam. ECG Findings * Normal sinus rhythm. Left Ventricle * LVEF 55%. * Mild left ventricular diastolic dysfunction. Right Ventricle * Normal right ventricular structure and function. Left Atrium * Normal left atrial size. Right Atrium * Normal right atrial size. Interatrial Septum * No evidence of PFO with agitated saline contrast. Aortic Valve * Trileaflet aortic valve. Mitral Valve * Trace mitral regurgitation. Tricuspid Valve * Normal tricuspid valve structure and function. Pulmonic Valve * Pulmonic valve not well visualized. Aorta * Normally sized aortic root. Pericardium * The pericardium appears normal. IVC * Normal IVC dimensions and inspiratory collapse. Consult Discharge Plan - Plan Referrals: Inés Florian CNP [Primary Care Provider] - Socorro Cordero CNP [Family Provider] -
[2017-07-01] MEDS: Ascorbic Acid 500 MG TABLET PO SCH (08:16)
[2017-07-01] MEDS: Aspirin 81 MG TAB.CHEW PO SCH (08:17)
[2017-07-01] MEDS: amLODIPine 5 MG TABLET PO SCH (08:17)
[2017-07-01] MEDS: Folic Acid 1 MG TABLET PO SCH (08:17)
[2017-07-01] MEDS: Lisinopril 20 MG TABLET PO SCH (08:17)
[2017-07-01] MEDS: Insulin LISPRO 300 UNITS/3 ML VIAL SQ SCH ×2 (08:18→12:34)
[2017-07-01] MEDS ORDERED: Lidocaine Viscous Oral Soln 15 ML SOLUTION MM PRN (08:25)
[2017-07-01] MEDS ORDERED: Tetracaine/Benzocaine/Butamben 200MG/SPRAY (100SPY/BOT) MM ONE (08:26)
[2017-07-01] MEDS ORDERED: 0.9 % Sodium Chloride 500 ML IVC ONE (08:26)
[2017-07-01] MEDS: *HR* FentaNYL (PF) 100 MCG/2 ML VIAL IVP PRN ×2 (09:20→09:25)
[2017-07-01] MEDS: *HR* Midazolam HCl 5 MG/5 ML VIAL IVP PRN ×2 (09:20→09:25)
[2017-07-01 11:51] VITALS: BP 155/71
--- NOTE | 2017-07-01 14:02 | Electrocardiograph Report ---
[place] [id number] Test Date: 2017-06-30 Pat Name: Louie Dumont Department: 111 Room: [id number] Gender: M Securities Consultant: : [id number] Requested By: Tara Martinez Order Number: [id number] Reading MD: Alma Delia Jackson Measurements Intervals Marvin Rate: 66 P: 20 NE: 178 QRS: -3 QRSD: 96 T: -73 QT: 448 QTc: 461 Interpretive Statements SINUS RHYTHM ST DEVIATION AND MODERATE T-WAVE ABNORMALITY, CONSIDER INFERIOR AND LATERAL ISCHEMIA Electronically Signed On 07-01-2017 14:01:29 EST by Alma Delia Jackson
--- NOTE | 2017-07-01 14:27 | Vascular/Endovasc Consult Note ---
Date of Encounter: 07/01/17 Time of Encounter: 14:24 Assessment and Plan (1) Cerebrovascular accident Current Visit: Yes Status: Acute Patient has acute onset left hemispheric stroke. The left internal carotid artery is occluded on 2 studies. Further angiography is not required. He does not have a hemodynamically significant right internal carotid artery stenosis. The duplex scan may have indicated a more significant disease than anatomically present due to the increased or compensatory flow through the right side due to the left internal carotid artery occlusion which is acute. I do not recommend further testing or surgery for the right carotid system. I explained to the patient and his that the left internal carotid artery occlusion is not amenable to surgical or endovascular therapy. This will need to be treated with antiplatelet therapy and otherwise mitigation of any vascular risks reduction. I recommended that the patient have a follow-up duplex scan of his carotid arteries in 1 year via his primary care provider. Qualifiers: CVA mechanism: unspecified Qualified Code(s): I63.9 - Cerebral infarction, unspecified (2) HTN (hypertension) Current Visit: Yes Status: Chronic Patient has risk factor of hypertension. Qualifiers: Hypertension type: essential hypertension Qualified Code(s): I10 - Essential (primary) hypertension (3) DM2 (diabetes mellitus, type 2) Current Visit: Yes Status: Chronic Patient has diabetes being treated medically. Qualifiers: Diabetes mellitus complication status: with circulatory complication Diabetes mellitus complication detail: with other circulatory complications Diabetes mellitus alf insulin use: without alf use Qualified Code( s): E11.59 - Type 2 diabetes mellitus with other circulatory complications - History of Present Illness Consult date: 07/01/17 Consult reason: Carotid disease and acute left hemispheric stroke Chief complaint: Right facial droop History of present illness: Mr. Dumont is a 67 year old male Who was admitted to [facility] on this past Saturday with acute onset of difficulty with speech and a right facial droop and diaphoresis. The patient had no previous history of TIAs or stroke. He had some episodes of dizziness. The patient was admitted with a significant neurologic deficit. He went on to have a number of imaging studies that included a CT scan as well as MRI of the brain and then a duplex scan of the carotids and a CT and grandmother carotids. The imaging of the brain revealed 4 foci of infarction in the left frontal lobe. This was interpreted as being in the middle cerebral artery territory. The duplex scan showed a left internal carotid artery occlusion and a 60-79% right internal carotid artery stenosis. CT angiogram confirms the left internal carotid artery occlusion. The degree of stenosis however in the right carotid system is less than 50%. The patient has clinically improved since his hospitalization. He is feeling well today. He has no new neurologic symptoms. Past Med Surg Social Fam HX - Past Medical History Medical history: CVA, diabetes, hypertension Psychiatric history: no psych history - Past Surgical History Surgical History: cholecystectomy - Social History Smoking Status: Former smoker Smokeless Tobacco Status: No Alcohol use: none Drug use: none - Family History Brother Hx Family Cardiac Disorders: Yes Sister Hx Family Cardiac Disorders: Yes Medications and Allergies Ascorbic Acid [Vitamin C] 1,000 mg PO DAILY 06/28/17 [History] Aspirin 81 mg PO DAILY 06/28/17 [History] Atorvastatin [Lipitor] 10 mg PO HS 06/28/17 [History] Citalopram [CeleXA] 20 mg PO DAILY 06/28/17 [History] Ferrous Sulfate [Iron] 325 mg PO BID 06/28/17 [History] Folic Acid 1 mg PO DAILY 06/28/17 [History] Glimepiride [Amaryl] 1 mg PO DAILY 06/28/17 [History] Metoprolol [Lopressor] 25 mg PO BID 06/28/17 [History] [place]-3 Fatty Acids [Fish Oil] 300 mg PO DAILY 06/28/17 [History] metFORMIN [Glucophage] 1,000 mg PO BIDWM 06/28/17 [History] 3 Allergy/AdvReac Type Severity Reaction Status Date / Time No Known Allergies Allergy Verified 06/28/17 11:55 All Systems Review: A 10-system review of systems was performed and is negative for pertinent findings except as documented above in the HPI. Exam Vital Signs, Last 4 Hours Temp Pulse Resp BP Pulse Ox 07/01/17 11:47 97.5 F L 63 16 155/71 94 General: Present: Conversant, No Apparent Distress, Well developed, Well nourished HEENT: Present: Atraumatic, Other (The patient has mild facial asymmetry with mild right-sided facial weakness.) Neck: Absent: JVD, Left Carotid bruit, Right Carotid bruit, Midline deformity, Tracheal deviation Cardiac: Present: Reg Rate and Rhythm, Normal S1 and S2, No Murmur. Absent: Irregular Rhythm Lungs: Present: Normal Breath Sounds, No Wheeze, Rales, Rhonchi Neuro: Present: Alert and responsive, Other (Mild right facial weakness.Patient is right-handed.) Abdomen: Present: Soft, Non-tender, Other (Obese) Vascular: Present: Normal capillary refill, Pulse, normal (Upper extremity pulses are 2+ and symmetrical.) Skin: Present: No rashes noted on visualized skin Consult Discharge Plan - Plan Referrals: Inés Florian CNP [Primary Care Provider] - Socorro Cordero CNP [Family Provider] -
--- NOTE | 2017-07-01 15:31 | Discharge Summary ---
<YonisCody madden - Last Filed: 07/01/17 15:51> Date of Encounter: 07/01/17 Time of Encounter: 09:00 - Discharge Diagnosis (1) Cerebrovascular accident Priority: Primary Status: Acute Qualifiers: CVA mechanism: unspecified Qualified Code(s): I63.9 - Cerebral infarction, unspecified (2) Dysarthria Priority: Secondary Status: Acute (3) HTN (hypertension) Priority: Secondary Status: Chronic Qualifiers: Hypertension type: essential hypertension Qualified Code(s): I10 - Essential (primary) hypertension (4) HLD (hyperlipidemia) Priority: Secondary Status: Chronic Qualifiers: Hyperlipidemia type: unspecified Qualified Code(s): E78.5 - Hyperlipidemia , unspecified (5) DM2 (diabetes mellitus, type 2) Priority: Secondary Status: Chronic Qualifiers: Diabetes mellitus complication status: with circulatory complication Diabetes mellitus complication detail: with other circulatory complications Diabetes mellitus superintendent terminal insulin use: without prison use Qualified Code( s): E11.59 - Type 2 diabetes mellitus with other circulatory complications (6) ICAO (internal carotid artery occlusion) Priority: Secondary Status: Acute Qualifiers: Laterality: bilateral Qualified Code(s): I65.23 - Occlusion and stenosis of bilateral carotid arteries (7) Influenza A virus present Priority: Secondary Status: Acute - Discharge Medications Prescriptions: amLODIPine [Norvasc] 5 mg PO DAILY #30 tablet Atorvastatin [Lipitor] 80 mg PO HS #60 tablet Clopidogrel [Plavix] 75 mg PO DAILY #30 tablet Lisinopril [Zestril] 20 mg PO DAILY #30 tablet Oseltamivir [Tamiflu] 75 mg PO BID #4 capsule Home Medications: Ascorbic Acid [Vitamin C] 1,000 mg PO DAILY 06/28/17 [History] Aspirin 81 mg PO DAILY 06/28/17 [History] Citalopram [CeleXA] 20 mg PO DAILY 06/28/17 [History] Ferrous Sulfate [Iron] 325 mg PO BID 06/28/17 [History] Folic Acid 1 mg PO DAILY 06/28/17 [History] Glimepiride [Amaryl] 1 mg PO DAILY 06/28/17 [History] Metoprolol [Lopressor] 25 mg PO BID 06/28/17 [History] [place]-3 Fatty Acids [Fish Oil] 300 mg PO DAILY 06/28/17 [History] metFORMIN [Glucophage] 1,000 mg PO BIDWM 06/28/17 [History] Atorvastatin [Lipitor] 80 mg PO HS #60 tablet 07/01/17 [Rx] Clopidogrel [Plavix] 75 mg PO DAILY #30 tablet 07/01/17 [Rx] Lisinopril [Zestril] 20 mg PO DAILY #30 tablet 07/01/17 [Rx] Oseltamivir [Tamiflu] 75 mg PO BID #4 capsule 07/01/17 [Rx] amLODIPine [Norvasc] 5 mg PO DAILY #30 tablet 07/01/17 [Rx] Allergies/Adverse Reactions: 3 Allergy/AdvReac Type Severity Reaction Status Date / Time No Known Allergies Allergy Verified 06/28/17 11:55 Procedures/tests Complete & Pending: Procedures Performed prior 72 hours Category Date Time Status MR head/brain wo con [MR] Routine MRI 06/29/17 09:00 Completed ECG 12 lead ECG [ECG] Routine Y 06/30/17 06:22 Completed EKG [ECG 12 lead ECG] [ECG] Stat Y 06/28/17 18:16 Ordered EV ROMMEL transesophageal echo Routine Y 07/01/17 07:00 Completed EV carotid duplex imaging BI Routine Y 06/29/17 18:14 Completed EV echocardiogram Routine Y 06/29/17 18:14 Completed Date of admission: 06/28/17 16:07 Primary care physician: Inés Florian, Consults: 06/28/17 16:29 Consult to Speech Therapy [CONS] Routine Comment: Evaluate, develop and implement POC Reason for Consult: failed dysphagia screen Call Completed: No 06/28/17 17:37 Consult to Occupational Therapy [CONS] Routine Comment: Evaluate, develop and implement POC Reason for Consult: Acute CVA Consult to Physical Therapy [CONS] Routine Comment: Evaluate, develop and implement POC Reason for Consult: Acute CVA 06/28/17 17:40 Consult to Neurology [CONS] Routine Consulting Provider: [facility] Reason for Consult: Acute CVA Call Completed: Yes 07/01/17 08:37 Consult to Vascular Surgery [CONS] Routine Consulting Provider: [facility] [place] Reason for Consult: left internal carotid occlusion with cva Call Completed: Yes Discharging clinician: Cody Smith Anticipated date of discharge: 07/01/17 - Patient Status Disposition: Home, Self-Care Condition: Good Functional capacity at discharge: independent ambulation Overall status at discharge: patient is progressing back to baseline - Discharge Instructions Instructions: Clopidogrel (By mouth), Influenza (DC), Ischemic Stroke (DC) Follow Up With: Inés Florian [Advanced Practice Nurse] - (please call the office to schedule an appointment for hospital follow up for 7-10 days) Additional Instructions: Please follow up with her primary care physician upon discharge. Take all of your medications as prescribed. 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 He presented to the emergency room approximately 4 hours after symptoms started. In the emergency department, vital signs Significant for Blood Pressure of 191/89, Otherwise Unremarkable. Labs were unremarkable. CT head performed in emergency showed a 7 mm acute infarction in the posterior aspect of the left frontal lobe and the left cerebral artery territory. CTA of head and neck showed left internal carotid occluded at the origin with right occlusion of 60-79%. Chest x-ray showed ulnar hyperinflation with vascular congestion. Echocardiogram performed and showed evidence of small 8 mm x 8 mm nonmobile mass on the aortic surface of the right coronary cusp leaflet tip. 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 Follow-up brain MRI showed evidence of for acute infarcts in the left frontal lobe consistent with head CT emergency department. Largest lesion of 13 mm. Neurology was consulted during course of hospital stay. Patient was started on aspirin, Plavix, high-dose statin therapy. During course hospital stay, patient gradually improved. He was able to receive physical therapy and occupational therapy during this time and his symptoms have greatly improved. Vascular surgery was consulted for left internal carotid occlusion and do not recommend surgical intervention at this time. They also recommend a follow-up duplex scan of his carotid arteries in one year via his primary care physician. Lipid panel significant for low HDL at 26, otherwise unremarkable. He was of note, positive for influenza A on respiratory panel and was treated appropriately with Tamiflu. At time of discharge, patient was medically stable and all questions were answered. He will be discharged home in stable medical condition with a prescription of aspirin, Plavix, atorvastatin, Tamiflu, speech therapy referral. Vital signs were stable and lab results were back to baseline levels. Physical therapy and occupational therapy both assessed the patient and determined that he has no ongoing needs at this time. Neurology also recommends outpatient sleep study for loud snoring per his possible underlying obstructive sleep apnea. - Time Spent with Patient Total time spent providing and/or coordinating discharge services: 41 minutes - Constitutional Vitals: Temp Pulse Resp BP Pulse Ox 97.5 F L 63 16 155/71 94 07/01/17 11:47 07/01/17 11:47 07/01/17 11:47 07/01/17 11:47 07/01/17 11:47 General appearance: Present: A&O X 3, no acute distress, answers questions appropriately Exam: Gen.: Vitals noted. No acute distress. AAOx3 HEENT: PERRL/EOMI, oropharynx clear, Normocephalic, atraumatic Cardiac: RRR, no murmur, +S1/S2 Pulmonary: Rales present in bilateral lower lobes, worse on left. equal chest expansion Abdomen: soft, nontender, BS noted, no guarding MSK: ROM intact, no joint swelling noted Extremities: no BLE edema, nontender calf, no cyanosis or clubbing Neuro: A&Ox3, moves all extremities, no focal deficits. Sensation intact diffusely. Muscle strength 5 out of 5 in 4 extremities. Cranial nerves II through XII grossly intact. Mild dysarthria appreciated. Psych: Appropriate mood and behavior <Tara Martinez - Last Filed: 07/01/17 17:30> Date of Encounter: 07/01/17 - Discharge Diagnosis (1) Acute CVA (cerebrovascular accident) Status: Acute (2) ICAO (internal carotid artery occlusion) Status: Acute Qualifiers: Laterality: bilateral Qualified Code(s): I65.23 - Occlusion and stenosis of bilateral carotid arteries (3) Dysarthria Status: Acute (4) HTN (hypertension) Status: Chronic Qualifiers: Hypertension type: essential hypertension Qualified Code(s): I10 - Essential (primary) hypertension (5) HLD (hyperlipidemia) Status: Chronic Qualifiers: Hyperlipidemia type: unspecified Qualified Code(s): E78.5 - Hyperlipidemia , unspecified (6) DM2 (diabetes mellitus, type 2) Status: Chronic Qualifiers: Diabetes mellitus complication status: with circulatory complication Diabetes mellitus complication detail: with other circulatory complications Diabetes mellitus prison insulin use: without superintendent terminal use Qualified Code( s): E11.59 - Type 2 diabetes mellitus with other circulatory complications (7) Influenza A virus present Status: Acute Procedures/tests Complete & Pending: Procedures Performed prior 72 hours Category Date Time Status MR head/brain wo con [MR] Routine MRI 06/29/17 09:00 Completed ECG 12 lead ECG [ECG] Routine Y 06/30/17 06:22 Completed EKG [ECG 12 lead ECG] [ECG] Stat Y 06/28/17 18:16 Ordered EV ROMMEL transesophageal echo Routine Y 07/01/17 07:00 Completed EV carotid duplex imaging BI Routine Y 06/29/17 18:14 Completed EV echocardiogram Routine Y 06/29/17 18:14 Completed Date of admission: 06/28/17 16:07 Primary care physician: Inés Florian, Consults: 06/28/17 16:29 Consult to Speech Therapy [CONS] Routine Comment: Evaluate, develop and implement POC Reason for Consult: failed dysphagia screen Call Completed: No 06/28/17 17:37 Consult to Occupational Therapy [CONS] Routine Comment: Evaluate, develop and implement POC Reason for Consult: Acute CVA Consult to Physical Therapy [CONS] Routine Comment: Evaluate, develop and implement POC Reason for Consult: Acute CVA 06/28/17 17:40 Consult to Neurology [CONS] Routine Consulting Provider: [facility] Reason for Consult: Acute CVA Call Completed: Yes 07/01/17 08:37 Consult to Vascular Surgery [CONS] Routine Consulting Provider: [facility] Reason for Consult: left internal carotid occlusion with cva Call Completed: Yes Hospital course: Mr. Dumont is a 67 year old male - Time Spent with Patient Total time spent providing and/or coordinating discharge services: - Constitutional Vitals: Temp Pulse Resp BP Pulse Ox 97.5 F L 63 16 155/71 94 07/01/17 11:47 07/01/17 11:47 07/01/17 11:47 07/01/17 11:47 07/01/17 11:47 - Attending Attestation I examined this patient and my medical decision-making was reviewed with the Resident Physician Dr. Smith. I agree with the documented findings, disposition and treatment plan as described except to the extent set forth below. 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 As per pt his symptoms started this morning around 7 to 8 AM, but he did not come to ER until 11.00 AM. He had further work up done in the ER , CT of Head showed 7mm acute infraction in the posterior aspect of Left frontal lobe in the Lt MCA territory. CTA of Head showed Left internal carotid occluded at its origin. MRI of Head showed 4 acute infarcts with in the Left frontal lobe - MCA territory, largest one measures at 13mm size located at precentral gyrus,mostly due to Left ICA occlusion. Pt was evaluated by Vascular surgery who suggested to continue ASA + Plavix and Statin. F/u with them as an out pt. However pt's family wanted to f/ u with [facility], so I recommend them to reach out to PCP for the referral. His ROMMEL came back as the right coronary cusp of the AV is focally sclerotic, no further recommendations by cardiology. Pt was evaluated by speech and recommend out pt speech therapy. so will dc him home in stable condition today. Gen: A, A, O x 3 neuro: Still has mild dysarthria.. Improving Rt facial droop
== END 2017-07-01 16:52 | disposition home or self-care (01) | DRG 63 ==
LOC: EMEROO 11:47 → 2NENU 16:07 → SUATTDRO 16:07 → 2NENU 16:24
PROVIDERS: ADMIT Family Medicine; ATTEND Family Medicine